=== PATIENT | female | born 1995 | race African-American/Black ===

== ENCOUNTER 2023-06-28 17:38 | Inpatient (IN) | payer BC, OTHER ==
[2023-06-28] MEDS ORDERED: LIDOCAINE 1% INJ 10MG/ML (20 ML MDV) SQ ONE (18:05)
--- NOTE | 2023-06-28 18:09 | ED ---
Psych HPI - General Chief Complaint: Psychiatric Symptoms Stated Complaint: self harm Time Seen by Provider: 06/28/23 17:59 Source: patient, police, EMS, RN notes reviewed Mode of arrival: EMS - History of Present Illness Initial Comments: Patient is a 28-year-old female presented ER with chief complaint of a wrist laceration and mental health evaluation. Per police, he found her at a rest area part in the back of the parking lot. He states that he saw a knife on the dashboard and noticed she had a left wrist laceration and blood clots on her leg. He called EMS and brought her to the hospital for evaluation. Patient states that she is suicidal and her plan was to cut her wrist. Patient states she does not have anybody to talk to and would like help for her depression. Patient denies any drugs or alcohol, chest pain or shortness of breath. Teatnus status is unknown. - Related Data Home Medications Medication Instructions Recorded Confirmed No Known Home Medications 06/28/23 06/28/23 Allergies Allergy/AdvReac Type Severity Reaction Status Date / Time No Known Allergies Allergy Verified 06/28/23 21:37 Review of Systems ROS Statement: Those systems with pertinent positive or pertinent negative responses have been documented in the HPI. ROS Other: All systems not noted in ROS Statement are negative. Past Medical History Past Medical History: No Reported History History of Any Multi-Drug Resistant Organisms: None Reported Past Surgical History: No Surgical Hx Reported Past Psychological History: Anxiety, Depression Smoking Status: Never smoker Past Alcohol Use History: Occasional Past Drug Use History: None Reported General Exam Limitations: no limitations General appearance: alert, in no apparent distress Neck exam: Present: normal inspection. Absent: tenderness, meningismus, lymphadenopathy Respiratory exam: Present: normal lung sounds bilaterally. Absent: respiratory distress, wheezes, rales, rhonchi, stridor Cardiovascular Exam: Present: regular rate, normal rhythm, normal heart sounds. Absent: systolic murmur, diastolic murmur, rubs, gallop, clicks Extremities exam: Present: other (2 cm superficial laceration to left wrist. 2+ left radial pulse. No active bleeding. Deep structures intact) Neurological exam: Present: alert, oriented X3, CN II-XII intact Psychiatric exam: Present: depressed, flat affect, suicidal ideation Skin exam: Present: warm, dry, normal color. Absent: rash Course Vital Signs 06/28/23 06/29/23 06/29/23 17:50 08:00 11:00 Temperature 99.0 F 98 F Pulse Rate 78 64 80 Respiratory 18 16 16 Rate Blood Pressure 106/72 124/64 140/86 O2 Sat by Pulse 99 98 98 Oximetry 06/29/23 15:35 Temperature Pulse Rate 78 Respiratory 16 Rate Blood Pressure 104/69 O2 Sat by Pulse 98 Oximetry Procedures - Laceration Laceration #1 Consent Obtained: verbal consent Indication: laceration Site: upper extremity Size (cm): 2 Description: linear Depth: simple, single layer Anesthetic Used: lidocaine 1% Anesthesia Technique: local infiltration Amount (mls): 3 Pre-repair: wound explored, irrigated extensively, deep structures intact Type of Sutures: nylon Size of Sutures: 5-0 Number of Sutures: 4 Technique: simple, interrupted Patient Tolerated Procedure: well, no complications Medical Decision Making - Medical Decision Making Was pt. sent in by a medical professional or institution (, PA, ZIPPER SEWING MACHINE OPERATOR, urgent care, hospital, or [facility]...) When possible be specific @ -Police Did you speak to anyone other than the patient for history (EMS, parent, family, police, friend...)? What history was obtained from this source @ -Police Did you review nursing and triage notes (agree or disagree)? Why? @ -I reviewed and agree with nursing and triage notes Were old charts reviewed (outside hosp., previous admission, EMS record, old EKG, old radiological studies, urgent care reports/EKG's, [facility] records)? Report findings @ -No old charts were reviewed Differential Diagnosis (chest pain, altered mental status, abdominal pain women, abdominal pain men, vaginal bleeding, weakness, fever, dyspnea, syncope, headache, dizziness, GI bleed, back pain, seizure, CVA, palpatations, mental health, musculoskeletal)? @ -Differential Mental Health: Depression, anxiety, bipolar, psychosis, jose izophrenia, borderline personality, situational depression, adjustment disorder, behavioral disorder, brain tumor, malingering, substance abuse, encephalopathy, medication reaction, dementia, hypothyroidism, degenerative neurologic disorder, lupus.... This is not meant to be all-inclusive list EKG interpreted by me (3pts min.). @ -None X-rays interpreted by me (1pt min.). @ -None done CT interpreted by me (1pt min.). @ -None done U/S interpreted by me (1pt. min.). @ -None done What testing was considered but not performed or refused? (CT, X-rays, U/S, labs)? Why? @ -None What meds were considered but not given or refused? Why? @ -None Did you discuss the management of the patient with other professionals (professionals i.e. , PA, ZIPPER SEWING MACHINE OPERATOR, lab, RT, psych nurse, social worker masters, freight car repairer, teacher, campus safety officer, pillowcase folder)? Give summary @ -Yes, I discussed this case with Sienna from psych. She states that the patient is going to be admitted for further treatment. Was smoking cessation discussed for >3mins.? @ -No Was critical care preformed (if so, how long)? @ -No Were there social determinants of health that impacted care today? How? (Homelessness, low income, unemployed, alcoholism, drug addiction, transportation, low edu. Level, literacy, decrease access to med. care, residential, rehab)? @ -No Was there de-escalation of care discussed even if they declined (Discuss DNR or withdrawal of care, Hospice)? DNR status @ -No What co-morbidities impacted this encounter? (DM, HTN, Smoking, COPD, CAD, Cancer, CVA, ARF, Chemo, Hep., AIDS, mental health diagnosis, sleep apnea, morbid obesity)? @ -None Was patient admitted / discharged? Hospital course, mention meds given and route, prescriptions, significant lab abnormalities, going to OR and other pertinent info. @ -Admitted Patient is a 28-year-old female presented ER with chief complaint of laceration and suicide ideation. Upon examination, patient's vital signs were stable. Physical exam was significant for a 2 cm laceration to the left wrist. 2+ left radial pulse. Deep structure were intact. Laceration did not extend past the vignesh pose layer of skin. Full range of motion. Patient was crying while speaking in a quite tone. Laceration was closed using lidocaine and sutured with 4 simple interrupted sutures. BAT 0.00. Urine drug screen negative. Patient was medically cleared for psychiatric evaluation. I spoke with Sienna from [facility] and she states the patient is going to be admitted for further evaluation and care. Patient was admitted to this hospital for mental health evaluation and care. Undiagnosed new problem with uncertain prognosis? @ -No Drug Therapy requiring intensive monitoring for toxicity (Heparin, Nitro, Insulin, Cardizem)? @ -No Were any procedures done? @ -Yes Diagnosis/symptom? @ -Laceration/ suicide ideation Acute, or Chronic, or Acute on Chronic? @ -Acute Uncomplicated (without systemic symptoms) or Complicated (systemic symptoms)? @ -Uncomplicated Side effects of treatment? @ -No Exacerbation, Progression, or Severe Exacerbation? @ -No Poses a threat to life or bodily function? How? (Chest pain, [place], [place], pneumonia, PE, COPD, DKA, ARF, appy, cholecystitis, CVA, Diverticulitis, Homicidal, Suicidal, threat to staff... and all critical care pts) @ -Yes - Lab Data Result diagrams: 06/29/23 00:40 06/29/23 00:40 Lab Results 06/28/23 06/28/23 06/29/23 Range/Units 22:00 22:01 00:40 WBC 6.6 (3.8-10.6) k/uL RBC 4.31 (3.80-5.40) m/uL Hgb 12.9 (11.4-16.0) gm/dL Hct 38.9 (34.0-46.0) % MCV 90.1 (80.0-100.0) fL MCH 29.8 (25.0-35.0) pg MCHC 33.1 (31.0-37.0) g/dL RDW 13.0 (11.5-15.5) % Plt Count 286 (150-450) k/uL MPV 7.9 Neutrophils % 64 % Lymphocytes % 27 % Monocytes % 6 % Eosinophils % 1 % Basophils % 0 % Neutrophils # 4.2 (1.3-7.7) k/uL Lymphocytes # 1.8 (1.0-4.8) k/uL Monocytes # 0.4 (0-1.0) k/uL Eosinophils # 0.1 (0-0.7) k/uL Basophils # 0.0 (0-0.2) k/uL Sodium (137-145) mmol/L Potassium (3.5-5.1) mmol/L Chloride (98-107) mmol/L Carbon Dioxide (22-30) mmol/L Anion Gap mmol/L BUN (7-17) mg/dL Creatinine (0.52-1.04) mg/dL Est GFR (CKD-EPI)AfAm (>60 ml/min/1.73 sqM) Est GFR (CKD-EPI)NonAf (>60 ml/min/1.73 sqM) Glucose (74-99) mg/dL Calcium (8.4-10.2) mg/dL Total Bilirubin (0.2-1.3) mg/dL AST (14-36) U/L ALT (4-34) U/L Alkaline Phosphatase (38-126) U/L Total Protein (6.3-8.2) g/dL Albumin (3.5-5.0) g/dL Urine Opiates Screen Not Detected (NotDetected) Ur Oxycodone Screen Not Detected (NotDetected) Urine Methadone Screen Not Detected (NotDetected) Ur Propoxyphene Screen Not Detected (NotDetected) Ur Barbiturates Screen Not Detected (NotDetected) U Tricyclic Antidepress Not Detected (NotDetected) Ur Phencyclidine Scrn Not Detected (NotDetected) Ur Amphetamines Screen Not Detected (NotDetected) U Methamphetamines Scrn Not Detected (NotDetected) U Benzodiazepines Scrn Not Detected (NotDetected) Urine Cocaine Screen Not Detected (NotDetected) U Marijuana (THC) Screen Not Detected (NotDetected) SARS-CoV-2 (PCR) Not Detected (Not Detectd) 06/29/23 Range/Units 00:40 WBC (3.8-10.6) k/uL RBC (3.80-5.40) m/uL Hgb (11.4-16.0) gm/dL Hct (34.0-46.0) % MCV (80.0-100.0) fL MCH (25.0-35.0) pg MCHC (31.0-37.0) g/dL RDW (11.5-15.5) % Plt Count (150-450) k/uL MPV Neutrophils % % Lymphocytes % % Monocytes % % Eosinophils % % Basophils % % Neutrophils # (1.3-7.7) k/uL Lymphocytes # (1.0-4.8) k/uL Monocytes # (0-1.0) k/uL Eosinophils # (0-0.7) k/uL Basophils # (0-0.2) k/uL Sodium 137 (137-145) mmol/L Potassium 3.4 L (3.5-5.1) mmol/L Chloride 106 (98-107) mmol/L Carbon Dioxide 21 L (22-30) mmol/L Anion Gap 10 mmol/L BUN 5 L (7-17) mg/dL Creatinine 0.61 (0.52-1.04) mg/dL Est GFR (CKD-EPI)AfAm >90 (>60 ml/min/1.73 sqM) Est GFR (CKD-EPI)NonAf >90 (>60 ml/min/1.73 sqM) Glucose 95 (74-99) mg/dL Calcium 8.8 (8.4-10.2) mg/dL Total Bilirubin 0.6 (0.2-1.3) mg/dL AST 25 (14-36) U/L ALT 16 (4-34) U/L Alkaline Phosphatase 76 (38-126) U/L Total Protein 6.4 (6.3-8.2) g/dL Albumin 3.3 L (3.5-5.0) g/dL Urine Opiates Screen (NotDetected) Ur Oxycodone Screen (NotDetected) Urine Methadone Screen (NotDetected) Ur Propoxyphene Screen (NotDetected) Ur Barbiturates Screen (NotDetected) U Tricyclic Antidepress (NotDetected) Ur Phencyclidine Scrn (NotDetected) Ur Amphetamines Screen (NotDetected) U Methamphetamines Scrn (NotDetected) U Benzodiazepines Scrn (NotDetected) Urine Cocaine Screen (NotDetected) U Marijuana (THC) Screen (NotDetected) SARS-CoV-2 (PCR) (Not Detectd) Disposition Clinical Impression: Suicidal ideation, Laceration Disposition: ADMITTED IP TO THIS HOSP Condition: Stable Time of Disposition: 16:32
[2023-06-28] MEDS ORDERED: DIPH,PERTUS(ACELL)TETVAC-LF 0.5 ML VIAL IM ONE (19:47)
[2023-06-28 23:41] LABS: Amphetamine Screen,Urine Not Detected (NotDetected); Barbiturate Screen,Urine Not Detected (NotDetected); Benzodiazepines Screen,Urine Not Detected (NotDetected); Cocaine Screen,Urine Not Detected (NotDetected); Methadone Screen, Urine Not Detected (NotDetected); Opiate Screen,Urine Not Detected (NotDetected); Oxycodone Screen, Urine Not Detected (NotDetected); Phencyclidine Screen,Urine Not Detected (NotDetected); Tricyclic Antidepressant,Urine Not Detected (NotDetected); Urn Cannabinoid Scrn Not Detected (NotDetected)
[2023-06-29 01:07] LABS: Basophils % (A) 0 %; Eosinophils # (A) 0.1 k/uL (0-0.7); Eosinophils % (A) 1 %; HCT 38.9 % (34.0-46.0); HGB 12.9 gm/dL (11.4-16.0); Lymphocytes # (A) 1.8 k/uL (1.0-4.8); Lymphocytes % (A) 27 %; MCH 29.8 pg (25.0-35.0); MCHC 33.1 g/dL (31.0-37.0); MCV 90.1 fL (80.0-100.0); Mean Platelet Volume 7.9; Monocytes # (A) 0.4 k/uL (0-1.0); Monocytes % (A) 6 %; Neutrophils # (A) 4.2 k/uL (1.3-7.7); Neutrophils % (A) 64 %; Platelet Count 286 k/uL (150-450); RBC 4.31 m/uL (3.80-5.40); WBC 6.6 k/uL (3.8-10.6)
[2023-06-29 01:43] LABS: ALT 16 U/L (4-34); AST 25 U/L (14-36); African American GFR (CKD) >90 (>60 ml/min/1.73 sqM); Albumin 3.3 g/dL (3.5-5.0); Alkaline Phosphatase 76 U/L (38-126); Anion Gap 10 mmol/L; Blood Urea Nitrogen 5 mg/dL (7-17); Calcium 8.8 mg/dL (8.4-10.2); Carbon Dioxide 21 mmol/L (22-30); Chloride 106 mmol/L (98-107); Glucose 95 mg/dL (74-99); Non-African American GFR(CKD) >90 (>60 ml/min/1.73 sqM); Potassium 3.4 mmol/L (3.5-5.1); Sodium 137 mmol/L (137-145); Total Bilirubin 0.6 mg/dL (0.2-1.3); Total Protein 6.4 g/dL (6.3-8.2)
[2023-06-29] MEDS ORDERED: LORazepam 2 MG/ML INJ IM PRN (15:12)
[2023-06-29] MEDS ORDERED: HALOPERIDOL LACTATE 5 MG/ML 1 ML VIAL IM PRN (15:12)
[2023-06-29] MEDS ORDERED: MAGNESIUM HYDROXIDE 2,400 MG/30 ML CUP PO PRN (15:12)
[2023-06-29] MEDS ORDERED: MAG HYDROX/AL HYDROX/SIMETH 30 ML CUP PO PRN (15:12)
[2023-06-29] MEDS ORDERED: traZODone HCL 50 MG TAB PO PRN (15:12)
[2023-06-29] MEDS ORDERED: haloperidoL 5 MG TAB PO PRN (15:12)
[2023-06-29] MEDS ORDERED: LORazepam 1 MG TAB PO PRN (15:12)
[2023-06-29] MEDS ORDERED: IBUPROFEN 600 MG TAB PO PRN (15:12)
[2023-06-29 17:08] LABS: Appearance,Urine Clear (Clear); Bilirubin,Urine Negative (Negative); Blood,Urine Small (Negative); Color,Urine Yellow; Glucose,Urine (UA) Negative (Negative); Ketones,Urine Trace (Negative); Leukocyte Esterase,Urine Negative (Negative); Nitrite,Urine Negative (Negative); Protein,Urine Negative (Negative); Urobilinogen,Urine <2.0 mg/dL (<2.0)
[2023-06-29 17:13] LABS: Calcium Oxalate Crystals,Urine Occasional /hpf; Mucus,Urine Many /hpf; RBC,Urine 1 /hpf (0-5); Squamous Epithelial Cell,Urine 9 /hpf (0-4); WBC,Urine 12 /hpf (0-5)
[2023-06-30] MEDS ORDERED: POTASSIUM CHLORIDE ER 20 MEQ TAB.ER PO STA (02:01)
--- NOTE | 2023-06-30 02:02 | P.CONS ---
History of Present Illness - Reason for Consult Consult date: 06/29/23 - History of Present Illness The patient is a 28-year-old female with no known PMH who presented to the emergency room with complaint of depression and suicidal ideation. The patient was admitted to the mental health unit where she was seen and evaluated accompanied by mental health and RN. The patient had reportedly been found with a knife and wrist lacerations with concerns for self-harm. Patient denies alcohol, tobacco, or substance use. She also denies any physical complaints at the time of interview. Denied experiencing chest discomfort, shortness of breath, fever, chills, cough, nausea, vomiting, abdominal pain, diarrhea. Review of systems: Pertinent positives and negatives as discussed in HPI, a complete review of systems was performed and all other systems are negative. Physical examination: General: non toxic, no distress, appears at stated age, morbidly obese Derm: no unusual rashes/lesions, no unusual ecchymoses, warm, dry Head: atraumatic, normocephalic, symmetric Eyes: EOMI, no lid lag, anicteric sclera ENT: Nose and ears atraumatic, no thrush, no pharyngeal erythema Neck: trachea midline, supple Mouth: no lip lesion, mucus membranes moist Cardiovascular: S1S2 reg, no murmur, no edema Lungs: CTA bilateral, no rhonchi, no rales , no accessory muscle use Abdominal: soft, nontender to palpation, no guarding Ext: no gross muscle atrophy, no contractures, Neuro: No gross focal neuro deficits noted Psych: Alert, oriented, appropriate affect Assessment: Hypokalemia Depression and suicidal ideation Imaging: None performed Data Review: Reviewed with potassium 3.4, CO2 21, BUN 5, albumin 3.3, UA unremarkable, urine toxicology negative Plan: Replace potassium and monitor Defer management of depression and suicidal ideation to the primary psychiatry service Thank you for allowing us to participate in the care of this patient. We will follow peripherally. Do not hesitate to contact us with questions. Someone can be reached from the [facility] hospitalist group at all hours of the day at [phone]. Past Medical History Past Medical History: No Reported History History of Any Multi-Drug Resistant Organisms: None Reported Past Surgical History: No Surgical Hx Reported Past Psychological History: Anxiety, Depression Smoking Status: Never smoker Past Alcohol Use History: Occasional Past Drug Use History: None Reported Medications and Allergies Home Medications Medication Instructions Recorded Confirmed Type No Known Home Medications 06/28/23 06/28/23 History Allergies Allergy/AdvReac Type Severity Reaction Status Date / Time No Known Allergies Allergy Verified 06/28/23 21:37 Physical Exam Vitals: Vital Signs Temp Pulse Pulse Resp BP BP Pulse Ox 06/29/23 16:24 98.5 F 75 18 119/63 97 06/29/23 15:35 78 16 104/69 98 06/29/23 11:00 80 16 140/86 98 06/29/23 08:00 98 F 64 16 124/64 98 Intake and Output 06/29/23 06/29/23 06/30/23 14:59 22:59 06:59 Other: Weight 105.1 kg Results CBC & Chem 7: 06/29/23 00:40 06/29/23 00:40 Labs: Abnormal Lab Results - Last 24 Hours (Table) 06/28/23 Range/Units 22:00 Urine Ketones Trace H (Negative) Urine Blood Small H (Negative) Urine WBC 12 H (0-5) /hpf Ur Squamous Epith Cells 9 H (0-4) /hpf Calcium Oxalate Crystal Occasional H (None) /hpf Urine Mucus Many H (None) /hpf
[2023-06-30 11:57] LABS: African American GFR (CKD) >90 (>60 ml/min/1.73 sqM); Anion Gap 11 mmol/L; Blood Urea Nitrogen 9 mg/dL (7-17); Calcium 9.7 mg/dL (8.4-10.2); Carbon Dioxide 25 mmol/L (22-30); Chloride 105 mmol/L (98-107); Glucose 75 mg/dL (74-99); Non-African American GFR(CKD) >90 (>60 ml/min/1.73 sqM); Potassium 4.4 mmol/L (3.5-5.1); Sodium 141 mmol/L (137-145)
[2023-06-30] MEDS ORDERED: ONDANSETRON 4 MG TAB PO PRN (12:30)
[2023-06-30] MEDS: SERTRALINE 25 MG TAB PO SCH (12:47)
--- NOTE | 2023-06-30 13:14 | P.HP ---
Psychiatric H&P - . H&P Date: 06/30/23 History & Physical: Allergies Allergy/AdvReac Type Severity Reaction Status Date / Time No Known Allergies Allergy Verified 06/28/23 21:37 Vital Signs Temp 98.5 F 06/29/23 16:24 Pulse 64 06/30/23 06:41 Resp 18 06/29/23 16:24 BP 124/81 06/30/23 06:41 Pulse Ox 97 06/29/23 16:24 FiO2 Intake & Output 06/29/23 06/30/23 06/30/23 18:59 06:59 18:59 Weight 105.1 kg Laboratory Last Values WBC 6.6 k/uL (3.8-10.6) 06/29/23 00:40 RBC 4.31 m/uL (3.80-5.40) 06/29/23 00:40 Hgb 12.9 gm/dL (11.4-16.0) 06/29/23 00:40 Hct 38.9 % (34.0-46.0) 06/29/23 00:40 MCV 90.1 fL (80.0-100.0) 06/29/23 00:40 MCH 29.8 pg (25.0-35.0) 06/29/23 00:40 MCHC 33.1 g/dL (31.0-37.0) 06/29/23 00:40 RDW 13.0 % (11.5-15.5) 06/29/23 00:40 Plt Count 286 k/uL (150-450) 06/29/23 00:40 MPV 7.9 06/29/23 00:40 Neutrophils % 64 % 06/29/23 00:40 Lymphocytes % 27 % 06/29/23 00:40 Monocytes % 6 % 06/29/23 00:40 Eosinophils % 1 % 06/29/23 00:40 Basophils % 0 % 06/29/23 00:40 Neutrophils # 4.2 k/uL (1.3-7.7) 06/29/23 00:40 Lymphocytes # 1.8 k/uL (1.0-4.8) 06/29/23 00:40 Monocytes # 0.4 k/uL (0-1.0) 06/29/23 00:40 Eosinophils # 0.1 k/uL (0-0.7) 06/29/23 00:40 Basophils # 0.0 k/uL (0-0.2) 06/29/23 00:40 Sodium 137 mmol/L (137-145) 06/29/23 00:40 Potassium 3.4 mmol/L (3.5-5.1) L 06/29/23 00:40 Chloride 106 mmol/L (98-107) 06/29/23 00:40 Carbon Dioxide 21 mmol/L (22-30) L 06/29/23 00:40 Anion Gap 10 mmol/L 06/29/23 00:40 BUN 5 mg/dL (7-17) L 06/29/23 00:40 Creatinine 0.61 mg/dL (0.52-1.04) 06/29/23 00:40 Est GFR (CKD-EPI)AfAm >90 (>60 ml/min/1.73 sqM) 06/29/23 00:40 Est GFR (CKD-EPI)NonAf >90 (>60 ml/min/1.73 sqM) 06/29/23 00:40 Glucose 95 mg/dL (74-99) 06/29/23 00:40 Calcium 8.8 mg/dL (8.4-10.2) 06/29/23 00:40 Total Bilirubin 0.6 mg/dL (0.2-1.3) 06/29/23 00:40 AST 25 U/L (14-36) 06/29/23 00:40 ALT 16 U/L (4-34) 06/29/23 00:40 Alkaline Phosphatase 76 U/L (38-126) 06/29/23 00:40 Total Protein 6.4 g/dL (6.3-8.2) 06/29/23 00:40 Albumin 3.3 g/dL (3.5-5.0) L 06/29/23 00:40 Urine Color Yellow 06/28/23 22:00 Urine Appearance Clear (Clear) 06/28/23 22:00 Urine pH 6.0 (5.0-8.0) 06/28/23 22:00 Ur Specific [place] 1.020 (1.001-1.035) 06/28/23 22:00 Urine Protein Negative (Negative) 06/28/23 22:00 Urine Glucose (UA) Negative (Negative) 06/28/23 22:00 Urine Ketones Trace (Negative) H 06/28/23 22:00 Urine Blood Small (Negative) H 06/28/23 22:00 Urine Nitrite Negative (Negative) 06/28/23 22:00 Urine Bilirubin Negative (Negative) 06/28/23 22:00 Urine Urobilinogen <2.0 mg/dL (<2.0) 06/28/23 22:00 Ur Leukocyte Esterase Negative (Negative) 06/28/23 22:00 Urine RBC 1 /hpf (0-5) 06/28/23 22:00 Urine WBC 12 /hpf (0-5) H 06/28/23 22:00 Ur Squamous Epith Cells 9 /hpf (0-4) H 06/28/23 22:00 Calcium Oxalate Crystal Occasional /hpf (None) H 06/28/23 22:00 Urine Mucus Many /hpf (None) H 06/28/23 22:00 Urine HCG, Qual Not Detected (Not Detectd) 06/28/23 22:00 Urine Opiates Screen Not Detected (NotDetected) 06/28/23 22:00 Ur Oxycodone Screen Not Detected (NotDetected) 06/28/23 22:00 Urine Methadone Screen Not Detected (NotDetected) 06/28/23 22:00 Ur Propoxyphene Screen Not Detected (NotDetected) 06/28/23 22:00 Ur Barbiturates Screen Not Detected (NotDetected) 06/28/23 22:00 U Tricyclic Antidepress Not Detected (NotDetected) 06/28/23 22:00 Ur Phencyclidine Scrn Not Detected (NotDetected) 06/28/23 22:00 Ur Amphetamines Screen Not Detected (NotDetected) 06/28/23 22:00 U Methamphetamines Scrn Not Detected (NotDetected) 06/28/23 22:00 U Benzodiazepines Scrn Not Detected (NotDetected) 06/28/23 22:00 Urine Cocaine Screen Not Detected (NotDetected) 06/28/23 22:00 U Marijuana (THC) Screen Not Detected (NotDetected) 06/28/23 22:00 SARS-CoV-2 (PCR) Not Detected (Not Detectd) 06/28/23 22:01 06/30/23 08:43 IDENTIFYING DATA: Patient is a 28-year-old female currently homeless. No children. 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 HPI: Patient presented to the hospital ED via ambulance on 06/28. As per EPS note "brought in by EMS, she called from a rest stop after cutting her wrist in a suicide attempt. She had a fight with her brother, she went to her storage unit in [facility]. got a knife and then drove to a rest stop in [place] to kill herself. She cut her wrist and got 4 sutures in ER. The patient states "I was trying to commit suicide, I was tired of being strong, tired of surviving, everytime I get on my feet, my family says things to me to bring me down." She reported that she was living with her brother and she asked him for money to help pay for her car so she does not lose it, he freaked out and starting going off on her, she states she became loud and was defending herself and he kicked h er out. She states she started a new job this week but she has not get paid, she is now going to lose her car and this has put her over the edge because she cannot work. She stated "I want to , I do not want to live anymore" "I feel I am constantly attacked." Upon todays interview, patient states she tried to commit suicide in her car at a rest area, by cutting her wrist. She states that she's tired of 'surviving' and tired of being strong. Afterward, she called 911 to help her, and they brought her to the hospital. Stressors include not getting along with her family, losing her job, felt her father was treating her like a child, by taking control of her checks, etc. Just got approved for an apartment, and moved in with her brother until she could move in. She got into a fight with her brother, and he kicked her out. States she was having car problems, and asked him for the financial help, and that is what started the argument. States her mood right now is sad, and that she has a little anxiety. She states she don't need medication. States she's sleeping well, and her appetite is good. Patient seems to minimize need for treatment, and is a little guarded, and is tearful during this interview. Spoke with patient about need for treatment, and medications that will help her. Patient agreeable and signed a medication consent. Patient denies any suicidal or homicidal ideations intent or plan. At this time patient denies any auditory or visual hallucinations. Patient denies any flight of ideas racing thoughts and increased in goal directed behavior. Patient denies using drugs/alcohol/tobacco. PAST PSYCHIATRIC HISTORY: Patient states that she used to go to [facility] in [place], [place]. Patient denies currently being on any psychiatric medications. Last hospitalization on psychiatric unit 4 or 5 years ago, in [facility]. Patient denies any psychiatric outpatient follow-up. Patient admits to history of suicide attempts in the past (4-5 years ago) by means of OD. PMH: as per ED note. ALLERGIES: as per EMR CHEMICAL DEPENDENCY HISTORY: as per HPI FAMILY PSYCHIATRIC/SUBSTANCE USE HISTORY: bipolar SOCIAL HISTORY: Patient was born and raised in [place], [place], Single, no children. 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 Denies legal issues. MENTAL STATUS EXAM: General Appearance: Patient appears to be stated age is alert, directable, and attempts to cooperate. Patient appears to have good hygiene and grooming. Overweight, wearing street clothes. Behavior: Patient is seated without any agitated behavior. Minimizing, tearful Speech: Patient's speech is fluent and nonpressured. Soft spoken. Guarded. Mood/Affect: Patient reports their mood is sad, affect is congruent and constricted. Suicidality/Homicidality: Patient denies having any homicidal ideation intent or plan. Denies any suicidal ideations intent or plan Perceptions: Patient denies any visual hallucinations and denies any auditory hallucinations Though content/process: There is no evidence of any delusional thought content and thought process is linear and goal-directed. concrete Memory and concentration: AOX3, grossly intact for the purposes of this session. Can spell "WORLD" backwards Judgment and insight: poor STRENGTHS/WEAKNESSES: strength is that patient is resilient. Weakness is that patient has poor judgment and is impulsive INTELLECT: average IMPRESSIONS: major depressive disorder, without psychotic features homelessness financial difficulties PLAN: -Patient is admitted under voluntary status to MHU for stabilization of ps ychiatric symptoms and safety. Patient has signed adult voluntary form and medication consent and is placed in patient's chart. -Medications : Will start patient on Zoloft 25mg qd for mood/anxiety, Zofran 4mg [id number] prn for nausea trazadone 50mg qhs prn for sleep -Ativan and Haldol PRN for agitation/aggression -Patient was informed of the risks, benefits and side effects of the medication and patient verbally consented to taking the medications. Patient signed med consent form and was placed in chart. -Internal Medicine consult to perform medical evaluation and physical. -NRT - nonsmoker -SW on board for discharge planning. Encourage patient to participate in groups to work on coping skills. 06/30/23 12:47 06/30/23 13:13
[2023-06-30 19:02] LABS: Chol/HDL Ratio 3.76 Ratio; LDL Cholesterol,Calculated 81.8 mg/dL (0.0-131.0); VLDL Calculation 13.58 mg/dL (5.00-40.00)
[2023-07-01] MEDS: SERTRALINE 25 MG TAB PO SCH (08:48)
--- NOTE | 2023-07-01 10:04 | P.PN ---
Progress Note - Text Progress Note Date: 07/01/23 Interval History: [facility], and was directable and agreeable to speak with resume writer in the office. Patient states she's feeling better today, after chatting with her father. She told him what had went on with her, and her situation, and he was accepting, and supportive and will come visit her tomorrow on visiting day. Patient claims that she is doing well on the medication, and is tolerating them well. States her mood is still quite poor, and she's still anxious. mildly improving affect. Claims she wants help, and wants to get better. States she slept well last night, and that her appetite is good. Patient is going to groups. Offered the patient a family meeting, prior to discharge, patient agreeable to resume writer speaking with her father. At this time patient denies any suicidal or homical ideations, intent or plan. Patient denies any auditory, vi sual hallucinations and denies any paranoia or delusions. Patient denies any side effects from the medications and has been compliant with meds. Mental Status Exam: General Appearance: Patient appears to be stated age is alert, directable, and attempts to cooperate. Patient appears to have good hygiene and grooming. Overweight, wearing street clothes. Behavior: Patient is seated without any agitated behavior. Accepting the need for help. Speech: Patient's speech is fluent and nonpressured. Soft spoken. Guarded, improving mildly Mood/Affect: Patient reports their mood is improving mildly, affect is congruent and constricted, improving mildly Suicidality/Homicidality: Patient denies having any homicidal ideation intent or plan. Denies any suicidal ideations intent or plan Perceptions: Patient denies any visual hallucinations and denies any auditory hallucinations Though content/process: There is no evidence of any delusional thought content and thought process is linear and goal-directed. concrete Memory and concentration: AOX3, grossly intact for the purposes of this session. Judgment and insight: poor, improving mildly IMPRESSIONS: major depressive disorder, without psychotic features homelessness financial difficulties PLAN: -Patient is admitted under voluntary status to [facility] for stabilization of psychiatric symptoms and safety. Patient has signed adult voluntary form and medication consent and is placed in patient's chart. -Medications : increase Zoloft 50mg qd for mood/anxiety, Zofran 4mg [id number] prn for nausea, trazadone 50mg qhs prn for sleep -Ativan and Haldol PRN for agitation/aggression -NRT - nonsmoker -SW on board for discharge planning. Encourage patient to participate in groups to work on coping skills. Likely discharge , if patient continues to improve psychiatrically.
[2023-07-02] MEDS: SERTRALINE 50 MG TAB PO SCH (08:24)
--- NOTE | 2023-07-02 10:29 | P.PN ---
Progress Note - Text Progress Note Date: 07/02/23 Interval History: Patient was seen in the hallway, and was directable and agreeable to speak with creative services writer in the office. Patient states she's feeling "better" and excited to see her father raffy for visitation. Happy she has his support. Patient claims that she is doing well on the medication, and is tolerating them well. States she is trying to stay positive. Claims she wants help, and wants to get better. States she slept well last night, and that her appetite is good. Patient is going to groups, and it's helping her, to know she's not alone, and that there is hope. Offered the patient a family meeting, prior to discharge, patient agreeable to creative services writer speaking with her father. Patient is currently homeless therefore will need to rely on a good visitation tonight with father to see if she is able to go back and stay with him upon discharge. At this time patient denies any suicidal or homical ideations, intent or plan. Patient denies any auditory, visual hallucinations and denies any paranoia or delusions. Patient denies any side effects from the medications and has been compliant with meds. Mental Status Exam: General Appearance: Patient appears to be stated age is alert, directable, and attempts to cooperate. Patient appears to have good hygiene and grooming. Overweight, wearing street clothes. Behavior: Patient is seated without any agitated behavior. Accepting the need for help. Speech: Patient's speech is fluent and nonpressured. Soft spoken. improving Mood/Affect: Patient reports their mood is "positive", affect is congruent and constricted, improving Suicidality/Homicidality: Patient denies having any homicidal ideation intent or plan. Denies any suicidal ideations intent or plan Perceptions: Patient denies any visual hallucinations and denies any auditory hallucinations Though content/process: There is no evidence of any delusional thought content and thought process is linear and goal-directed. concrete, improving Memory and concentration: AOX3, grossly intact for the purposes of this session. Judgment and insight: improving IMPRESSIONS: major depressive disorder, without psychotic features homelessness financial difficulties PLAN: -Patient is admitted under voluntary status to [facility] for stabilization of psychiatric symptoms and safety. Patient has signed adult voluntary form and medication consent and is placed in patient's chart. -Medications: Zoloft 50 mg qd for mood/anxiety, Zofran 4mg [id number] prn for nausea, trazadone 50mg qhs prn for sleep -Ativan and Haldol PRN for agitation/aggression -NRT - nonsmoker -SW on board for discharge planning. Encourage patient to participate in groups to work on coping skills. [facility] which will be dependent of the visitation tonight of patient with her father. Sw to follow up with patients father tomorrow morning to finalize discharge planning as brandie martin is currently homeless unless she goes to her fathers house.
[2023-07-03] MEDS: SERTRALINE 50 MG TAB PO SCH (08:20)
[2023-07-03 08:46] VITALS: BP 126/66; PULSE 101; RESP 20; TEMP 97.5
--- NOTE | 2023-07-03 11:10 | P.DS ---
Providers Date of admission: 06/29/23 14:54 Expected date of discharge: 07/03/23 Attending physician: Paco Jerez MD Consults: 06/29/23 15:12 Consult Physician Routine Consulting Provider: Madi Diaz Consult Reason/Comments: H and P Do you want consulting provider notified?: Yes Primary care physician: Stated None - Discharge Diagnosis(es) (1) Major depressive disorder without psychotic features Current Visit: Yes Status: Acute Priority: High (2) Homelessness Current Visit: Yes Status: Acute Priority: Medium (3) Financial difficulties Current Visit: Yes Status: Acute Priority: Medium (4) Suicide attempt by cutting of wrist Current Visit: Yes Status: Acute Priority: High Hospital Course: Admission HPI: Admission note was completed by teletypewriter installer "Patient presented to the hospital ED via ambulance on 06/28. As per EPS note "brought in by EMS, she called from a rest stop after cutting her wrist in a suicide attempt. She had a fight with her brother, she went to her storage unit in [facility]. got a knife and then drove to a rest stop in [place] to kill herself. She cut her wrist and got 4 sutures in ER. The patient states "I was trying to commit suicide, I was tired of being strong, tired of surviving, everytime I get on my feet, my family says things to me to bring me down." She reported that she was living with her brother and she asked him for money to help pay for her car so she does not lose it, he freaked out and starting going off on her, she states she became loud and was defending herself and he kicked her out. She states she started a new job this week but she has not get paid, she is now going to lose her car and this has put her over the edge because she cannot work. She stated "I want to , I do not want to live anymore" "I feel I am constantly attacked." Upon todays interview, patient states she tried to commit suicide in her car at a rest area, by cutting her wrist. She states that she's tired of 'surviving' and tired of being strong. Afterward, she called 911 to help her, and they brought her to the hospital. Stressors include not getting along with her family, losing her job, felt her father was treating her like a child, by taking control of her checks, etc. Just got approved for an apartment, and moved in with her brother until she could move in. She got into a fight with her brother, and he kicked her out. States she was having car problems, and asked him for the financial help, and that is what started the argument. States her mood right now is sad, and that she has a little anxiety. She states she don't need medication. States she's sleeping well, and her appetite is good. Patient seems to minimize need for treatment, and is a little guarded, and is tearful during this interview. Spoke with patient about need for treatment, and medications that will help her. Patient agreeable and signed a medication consent. Patient denies any suicidal or homicidal ideations intent or plan. At this time patient denies any auditory or visual hallucinations. Patient denies any flight of ideas racing thoughts and increased in goal directed behavior. Patient denies using drugs/alcohol/tobacco." Hospital course: Upon admission to the unit patient was directable and agreeable to commence treatment and signed adult voluntary form. Patient got along well with other patients on the unit and followed unit protocol. Patient was compliant with the medications and denied any side effects throughout hospital course. Patient was started on Zoloft 50 mg daily for mood/anxiety, trazodone daily at bedtime when necessary for sleep however she did not require this and slept fairly well while on the unit. Patient spoke of her stressors and engaged in therapy both group and individual. Patient was also seen by medical team for history and physical exam. Throughout the course of the hospitalization patient gradually improved with regards to mood, anxiety, sleep and became more future oriented with improved insight and judgment. On the day of discharge patient denied any suicidal or homicidal ideations intent or plan denied any auditory or visual hallucinations. Patient endorsed wanting to live for her future and her career. The patient denied any access to guns or weapons. Patient denied any paranoia and did not endorse any delusions. Patient does not have a significant history of substance abuse and was counseled on abstaining from all substances including alcohol and marijuana. Patient was also counseled on the medications and need for regular compliance and was encouraged to follow-up with their outpatient appointment for mental health and also for primary care. Prior to discharge a family meeting will be arranged by perinatal social worker to answer any questions and ensure safety upon discharge. The patient's father visited her while she was on the unit and patient and her father reconciled and she will be staying with him upon discharge and following up in [facility] for outpatient mental health treatment. Mental status exam: General Appearance: Patient appears to be mildly overweight, stated age is alert, pleasant, and cooperative. Patient is in no acute distress and has improved hygiene and grooming Behavior: Patient is calmly seated without any agitated behavior. Speech: Patient's speech is fluent and nonpressured. Mood/Affect: Patient reports their mood is "better", affect is congruent and euthymic. Suicidality/Homicidality: Patient denies having any suicidal or homicidal ideation intent or plan. Perceptions: Patient denies any auditory or visual hallucinations. Though content/process: There is no evidence of any delusional thought content and thought process is linear and goal-directed. more future oriented Memory and concentration: AOX3, grossly intact for the purposes of this session. Can spell "WORLD" backwards correctly. Judgment and insight: improved with guarded prognosis Impression: major depressive disorder, without psychotic features homelessness financial difficulties suicide attempt by cutting wrist Plan: -Continue with discharge today as patient has improved and stabilized psychiatrically and is not currently an imminent threat to herself and/or others. -Continue medications: Zoloft 50 mg daily for mood/anxiety. -Patient was counseled on the need for medication compliance and appropriate follow-up at mental health and also primary care for medical issues. Patient verbalized understanding and agreed. -Social work to arrange for and conduct family meeting to ensure safety upon discharge and answer any questions/concerns. Social work also to arrange for patients follow up appointments for psychiatric care along with follow up with primary care provider. -Patient counseled on abstaining from recreational drugs and marijuana and alcohol. Was informed/educated on the adverse effects on their physical and mental health. Patient verbally agreed and understood. -Patient was instructed to return to the hospital or seek immediate medical care if their psychiatric or medical symptoms do worsen or reoccur. Allergies Allergy/AdvReac Type Severity Reaction Status Date / Time No Known Allergies Allergy Verified 06/28/23 21:37 Laboratory Results WBC 6.6 k/uL (3.8-10.6) 06/29/23 00:40 RBC 4.31 m/uL (3.80-5.40) 06/29/23 00:40 Hgb 12.9 gm/dL (11.4-16.0) 06/29/23 00:40 Hct 38.9 % (34.0-46.0) 06/29/23 00:40 MCV 90.1 fL (80.0-100.0) 06/29/23 00:40 MCH 29.8 pg (25.0-35.0) 06/29/23 00:40 MCHC 33.1 g/dL (31.0-37.0) 06/29/23 00:40 RDW 13.0 % (11.5-15.5) 06/29/23 00:40 Plt Count 286 k/uL (150-450) 06/29/23 00:40 MPV 7.9 06/29/23 00:40 Neutrophils % 64 % 06/29/23 00:40 Lymphocytes % 27 % 06/29/23 00:40 Monocytes % 6 % 06/29/23 00:40 Eosinophils % 1 % 06/29/23 00:40 Basophils % 0 % 06/29/23 00:40 Neutrophils # 4.2 k/uL (1.3-7.7) 06/29/23 00:40 Lymphocytes # 1.8 k/uL (1.0-4.8) 06/29/23 00:40 Monocytes # 0.4 k/uL (0-1.0) 06/29/23 00:40 Eosinophils # 0.1 k/uL (0-0.7) 06/29/23 00:40 Basophils # 0.0 k/uL (0-0.2) 06/29/23 00:40 Sodium 141 mmol/L (137-145) 06/30/23 10:34 Potassium 4.4 mmol/L (3.5-5.1) 06/30/23 10:34 Chloride 105 mmol/L (98-107) 06/30/23 10:34 Carbon Dioxide 25 mmol/L (22-30) 06/30/23 10:34 Anion Gap 11 mmol/L 06/30/23 10:34 BUN 9 mg/dL (7-17) 06/30/23 10:34 Creatinine 0.78 mg/dL (0.52-1.04) 06/30/23 10:34 Est GFR (CKD-EPI)AfAm >90 (>60 ml/min/1.73 sqM) 06/30/23 10:34 Est GFR (CKD-EPI)NonAf >90 (>60 ml/min/1.73 sqM) 06/30/23 10:34 Glucose 75 mg/dL (74-99) 06/30/23 10:[address] Glu mg/dL 108 mg/dL 06/29/23 00:40 Hemoglobin A1c 5.4 % (<=6.0) 06/29/23 00:40 Calcium 9.7 mg/dL (8.4-10.2) 06/30/23 10:34 Total Bilirubin 0.6 mg/dL (0.2-1.3) 06/29/23 00:40 AST 25 U/L (14-36) 06/29/23 00:40 ALT 16 U/L (4-34) 06/29/23 00:40 Alkaline Phosphatase 76 U/L (38-126) 06/29/23 00:40 Total Protein 6.4 g/dL (6.3-8.2) 06/29/23 00:40 Albumin 3.3 g/dL (3.5-5.0) L 06/29/23 00:40 Triglycerides 67.90 mg/dL (0.00-149.00) 06/29/23 00:40 Cholesterol 130.00 mg/dL (0.00-200.00) 06/29/23 00:40 LDL Cholesterol, Calc 81.8 mg/dL (0.0-131.0) 06/29/23 00:40 VLDL Cholesterol, Calc 13.58 mg/dL (5.00-40.00) 06/29/23 00:40 HDL Cholesterol 34.60 mg/dL (40.00-60.00) L 06/29/23 00:40 Cholesterol/HDL Ratio 3.76 Ratio 06/29/23 00:40 TSH 3.980 mIU/L (0.465-4.680) 06/29/23 00:40 Urine Color Yellow 06/28/23 22:00 Urine Appearance Clear (Clear) 06/28/23 22:00 Urine pH 6.0 (5.0-8.0) 06/28/23 22:00 Ur Specific [place] 1.020 (1.001-1.035) 06/28/23 22:00 Urine Protein Negative (Negative) 06/28/23 22:00 Urine Glucose (UA) Negative (Negative) 06/28/23 22:00 Urine Ketones Trace (Negative) H 06/28/23 22:00 Urine Blood Small (Negative) H 06/28/23 22:00 Urine Nitrite Negative (Negative) 06/28/23 22:00 Urine Bilirubin Negative (Negative) 06/28/23 22:00 Urine Urobilinogen <2.0 mg/dL (<2.0) 06/28/23 22:00 Ur Leukocyte Esterase Negative (Negative) 06/28/23 22:00 Urine RBC 1 /hpf (0-5) 06/28/23 22:00 Urine WBC 12 /hpf (0-5) H 06/28/23 22:00 Ur Squamous Epith Cells 9 /hpf (0-4) H 06/28/23 22:00 Calcium Oxalate Crystal Occasional /hpf (None) H 06/28/23 22:00 Urine Mucus Many /hpf (None) H 06/28/23 22:00 Urine HCG, Qual Not Detected (Not Detectd) 06/28/23 22:00 Urine Opiates Screen Not Detected (NotDetected) 06/28/23 22:00 Ur Oxycodone Screen Not Detected (NotDetected) 06/28/23 22:00 Urine Methadone Screen Not Detected (NotDetected) 06/28/23 22:00 Ur Propoxyphene Screen Not Detected (NotDetected) 06/28/23 22:00 Ur Barbiturates Screen Not Detected (NotDetected) 06/28/23 22:00 U Tricyclic Antidepress Not Detected (NotDetected) 06/28/23 22:00 Ur Phencyclidine Scrn Not Detected (NotDetected) 06/28/23 22:00 Ur Amphetamines Screen Not Detected (NotDetected) 06/28/23 22:00 U Methamphetamines Scrn Not Detected (NotDetected) 06/28/23 22:00 U Benzodiazepines Scrn Not Detected (NotDetected) 06/28/23 22:00 Urine Cocaine Screen Not Detected (NotDetected) 06/28/23 22:00 U Marijuana (THC) Screen Not Detected (NotDetected) 06/28/23 22:00 SARS-CoV-2 (PCR) Not Detected (Not Detectd) 06/28/23 22:01 Vital Signs Temp 97.5 F L 07/03/23 08:27 Pulse 101 H 07/03/23 08:27 Resp 20 07/03/23 08:27 BP 126/66 07/03/23 08:27 Pulse Ox 97 07/02/23 08:00 FiO2 Patient Condition at Discharge: Stable Plan - Discharge Summary Discharge Rx Participant: Yes New Discharge Prescriptions: New Sertraline [Zoloft] 50 mg PO DAILY 30 Days #30 tab Discharge Medication List Sertraline [Zoloft] 50 mg PO DAILY 30 Days #30 tab 07/03/23 [Rx] Follow up Appointment(s)/Referral(s): [facility] [Other] - 07/08/23 1:00 pm (Alice) [facility] [Other] - 3 Days (Follow up for suture removal 07-05/ 07-08-23 7-10 days. ) Patient Instructions/Handouts: Depression (DC) Activity/Diet/Wound Care/Special Instructions: Avoid the use of street drugs and alcohol. Take all medications as prescribed. When you are in need of refills on your medications, please contact your medical provider and/or outpatient psychiatrist/provider to have this done. Pl ease go to your scheduled outpatient appointment for aftercare treatment. If symptoms return or become worse, call the crisis line at and/or go to the nearest emergency room for evaluation. National Suicide Hotline 369. Follow up with outpatient physician for removal of sutures between 07-05-23 to 07-08-23, 7-10 days. Discharge Disposition: HOME SELF-CARE
== END 2023-07-03 13:13 | disposition home or self-care (01) | DRG 881 ==
LOC: EC 17:38 → 3MHU 06-29 14:54
PROVIDERS: ADMIT Psychiatry & Neurology Psychiatry; ATTEND Psychiatry & Neurology Psychiatry
DX: F32.9 Major depressive disorder, single episode, unspecified (principal); Z59.00 Homelessness unspecified; E87.6 Hypokalemia; F41.9 Anxiety disorder, unspecified; S61.512A Laceration without foreign body of left wrist, initial encounter; Z79.899 Other long term (current) drug therapy; Z91.51 Personal history of suicidal behavior; Z11.52 Encounter for screening for COVID-19
CPT/HCPCS: 12001; 36415; 80048; 80053; 80061; 80306; 81001; 81025; 82075; 83036; 84443; 85025; 87635; 90471; 90715; 99285